=== PATIENT | female | born 1975 | race Two or more races ===

== ENCOUNTER 2023-07-16 18:56 | Emergency (ER) | payer MEDICAID ==
[~2023-07-16] VITALS: Ht 160 cm; Wt 76.8 kg
[2023-07-16 19:04] VITALS: BP 151/87; PULSE 94; RESP 18; TEMP 98
== END 2023-07-16 22:27 | disposition left against medical advice (07) ==
LOC: EMS 18:59
DX: F69 Unspecified disorder of adult personality and behavior (principal); Z53.21 Procedure and treatment not carried out due to patient leaving prior to being seen by health care provider
CPT/HCPCS: 99281; Z7502